=== PATIENT | male | born 1960 | race African-American/Black ===

== ENCOUNTER 2023-06-01 04:03 | Emergency (ER) | payer MEDICARE, OTHER ==
[2023-06-01 04:13] VITALS: PULSE 93; RESP 18; TEMP 98.9; BMI 25.4
[2023-06-01 04:15] VITALS: BP 152/96
[2023-06-01] MEDS ORDERED: DEXAMETHASONE SOD PHOSPHATE 10 MG/1 ML VIAL IM ONE (04:53)
[2023-06-01] MEDS ORDERED: KETOROLAC TROMETHAMINE 30 MG/1 ML VIAL IM ONE (04:53)
[2023-06-01] MEDS ORDERED: KETOROLAC TROMETHAMINE 30 MG/1 ML VIAL ONE (05:00)
[2023-06-01] MEDS ORDERED: DEXAMETHASONE SOD PHOSPHATE 10 MG/1 ML VIAL ONE (05:00)
== END 2023-06-01 05:38 | disposition home or self-care (01) ==
LOC: JER 04:03
PROC: 3E023GC Introduction of Other Therapeutic Substance into Muscle, Percutaneous Approach (ICD-10-PCS; principal; 2023-06-01)
PROC: 3E0233Z Introduction of Anti-inflammatory into Muscle, Percutaneous Approach (ICD-10-PCS; 2023-06-01)
DX: G50.0 Trigeminal neuralgia (principal); R42 Dizziness and giddiness; R22.0 Localized swelling, mass and lump, head
CPT/HCPCS: 96372; 99284-25; J1100

== ENCOUNTER 2023-09-11 20:42 | Emergency (ER) | payer MEDICARE, OTHER ==
[2023-09-11 20:48] VITALS: BP 145/85; PULSE 72; RESP 24; TEMP 97.9; BMI 25.0
[2023-09-11] MEDS ORDERED: ACETAMINOPHEN INJECTION 100 ML IVPB ONE (21:37)
[2023-09-11 21:41] LABS: EOS % 5.7 % (0-4.5); HEMATOCRIT 47.7 % (35.4-49); HEMOGLOBIN 16.6 GM/dL (11.7-16.9); LYMPH % 30.3 % (8-40); MCHC 34.9 g/dl (32.0-35.9); MEAN CELL VOLUME 86.1 fl (80-96); MEAN PLT VOLUME 7.3 fl (7.5-11.1); MONO % 11.3 % (3.8-10.2); NEUT % 51.7 % (42.8-82.8); PLATELET COUNT 362 10^3/uL (134-434); RBC 5.54 M/mm3 (4.00-5.60); RDW 13.8 % (11.9-15.9); WHITE BLOOD COUNT 5.9 K/mm3 (4.0-10.0)
[2023-09-11] MEDS: ACETAMINOPHEN 1000 MG/100 ML BAG IVPB ONE (21:47)
[2023-09-11 21:52] LABS: ACTIVATED PTT 40.7 SECONDS (25.2-36.5); INR 1.06 (0.83-1.09); PROTHROMBIN TIME (PATIENT) 12.3 SEC (9.7-13.0)
[2023-09-11 22:43] LABS: POTASSIUM 4.2 mmol/L (3.5-5.1)
[2023-09-11 22:44] LABS: BLOOD UREA NITROGEN 19.2 mg/dL (7-18); CALCIUM 10.4 mg/dL (8.5-10.1); MAGNESIUM 2.3 mg/dL (1.8-2.4)
[2023-09-11 22:50] LABS: CREATININE 1.2 mg/dL (0.55-1.3)
[2023-09-11 22:52] LABS: BILIRUBIN,TOTAL 0.3 mg/dL (0.2-1); TOT PROT 7.5 g/dl (6.4-8.2)
== END 2023-09-12 00:07 | disposition left against medical advice (07) ==
LOC: JER 20:42
PROC: 3E033NZ Introduction of Analgesics, Hypnotics, Sedatives into Peripheral Vein, Percutaneous Approach (ICD-10-PCS; principal; 2023-09-11)
DX: R07.9 Chest pain, unspecified (principal); R06.02 Shortness of breath; Z20.822 Contact with and (suspected) exposure to COVID-19
CPT/HCPCS: 0241U-QW; 36415; 71046-TC-FY; 80053; 83735; 84484; 85025; 85610; 85730; 93005; 93010; 96374; 99285-25; J0131